=== PATIENT | female | born 1940 | race Caucasian/White ===

== ENCOUNTER → 2020-11-24 10:47 | Outpatient (CLI) | payer MEDICARE, SELFPAY | PROVIDERS: Visit Provider Internal Medicine Gastroenterology | DX: Z01.812 Encounter for preprocedural laboratory examination (principal); Z20.822 Contact with and (suspected) exposure to COVID-19; Z13.810 Encounter for screening for upper gastrointestinal disorder | CPT/HCPCS: U0003 ==

== ENCOUNTER 2020-11-26 09:56 | Day surgery (SDC) | payer MEDICARE, SELFPAY ==
[2020-11-17 14:07] VITALS: BMI 33.3
--- NOTE | 2020-11-26 10:14 | HMH.ANESCL ---
[facility] Anesthesia Checklist - Structural Data Admitted From: Home Planned Operative Procedure/s: EGD Consent for Planned Operative Procedure(s) Verified: Yes - NPO Status Verified Time NPO: 00:00 - Airway Assessment C-Spine Mobility Assessed: Yes TMJ Mobility Assessed: Yes - Neurological Assessment Level of Consciousness: Awake Hx Seizures: No Numbness or tingling in extremities: No - Anesthesia Plan Anesthesia Risk discussed: Yes Anesthesia Plan: Verified ASA Class: III Anesthesia Type: MAC [facility] History I have reviewed the patient's past medical history: Yes Medical History: Reports:: Cancer (COLON), Diabetes Mellitus Type 2 Denies:: Diabetes Mellitus Type 1, Internal Pacemaker, MRSA *Have you ever received a pneumonia vaccine?: Yes *Have you received a flu vaccine this season?: Yes Anesthesia experience/problems:: None Other Surgeries: No: Pacemaker Amputation: No Fractures: No - *Social History Last grade of school completed: High school graduate Smoking Status: Never smoker Alcohol Intake: current Alcohol Intake Frequency:: holidays/special occasions only Substance Use Type: denies use *Occupational Status:: retired Housing: house Household Members: spouse *Travel in the last 8 weeks: None Family Hx:: Stroke, Other
[2020-11-26 10:33] VITALS: BP 171/96; PULSE 92; RESP 18
[2020-11-26 10:52] LABS: POC Glucose,Bedside 115 (70-110)
--- NOTE | 2020-11-26 11:24 | HMH.PROC ---
[facility] Procedure Note Procedure Note:: Upper Endoscopy Procedure Report: Esophagogastroduodenoscopy with cold biopsies and TTS balloon dilation Endoscopost: Tyson Pastrana II, MD Referring Physician: Aisha Cadena PA-C Date of Procedure: November 26, 2020 Equipment: Olympus GIF 190 standard upper endoscope Sedation: MAC sedation Indications: Mrs. Espinoza is an 79-year-old female with dysphagia. The patient does have a long history of GERD and reflux. She did have Jacobo fundoplication (Dr. Elliott Louise) 9 years ago. She did improve initially but has had recurrent symptoms. Now, she reports epigastric abdominal discomfort with dyspepsia. She has had bloating and moderate belching. She reports some early satiety and ongoing reflux. She has had no heartburn. In the morning she will have some globus sensation. She reports regular bowel function. She did have an EGD a couple of years ago at [facility] (Dr. Chris Hernandez) but esophageal dilation was not performed. She was diagnosed with colon cancer (by me) 20 years ago. Procedure: Prior to the procedure, a history and physical exam was performed, and patient's medications and allergies were reviewed. The risks, benefits and alternatives of the sedation and procedure were discussed with the patient. All questions were answered and informed consent was obtained. The patient was brought to the procedure room. Patient identification and proposed procedure were verified by the physician and the nurse. The patient was placed in a left lateral decubitus position and the scope was passed under direct vision. Throughout the procedure, the patient's blood pressure, pulse, and oxygen saturations were monitored continuously. The upper GI endoscopy was accomplished without difficulty. The patient tolerated the procedure well. Findings: The scope was passed directly into the upper esophagus and advanced to the third portion of the duodenum. The post bulbar duodenum and duodenal bulb were normal with normal mucosa and conniventes. The scope was withdrawn through a normal duodenal bulb and pylorus into the stomach. There was linear reactive gastropathy of the antrum and body of the stomach. The remainder of the fundus of the stomach was grossly normal. Upon retroflexion there was a recurrent 3 cm hiatal hernia with evidence of prior Jacobo fundoplication with some slippage. Cold biopsies were taken from the antrum of the stomach. The scope was then withdrawn into the esophagus. There was no evidence of Ya's or reflux esophagitis. There was evidence of moderate to marked esophageal dysmotility. The entire esophagus was dilated to 60 Vietnamese/20 mm with a TTS hydrostatic balloon. There was some resistance at the cricopharyngeus. The remainder of the esophageal mucosa was normal. Impression: 1. Cricopharyngeal spasm status post dilation to 20 mm 2. Nonerosive GERD with moderate to marked esophageal dysmotility and recurrent 3 cm hiatal hernia 3. Moderate linear reactive gastropathy with bile reflux Plan: I will follow-up the biopsies. The patient does have functional dyspepsia and functional GERD with esophageal dyskinesia. We will discuss additional dietary measures and treatment options.
[2020-11-26 11:27] VITALS: BP 149/80; PULSE 89; RESP 16; TEMP 36.2; O2SAT 92
[2020-11-26 11:37] VITALS: BP 103/66; PULSE 81; RESP 16; O2SAT 90
[2020-11-26 11:47] VITALS: BP 126/73; PULSE 78; RESP 16; O2SAT 95
[2020-11-26 11:57] VITALS: BP 145/81; PULSE 78; RESP 16; O2SAT 97
[2020-11-26 12:07] VITALS: BP 142/74; PULSE 74; RESP 16; O2SAT 98
== END 2020-11-26 12:23 | disposition home or self-care (01) ==
LOC: OUTP 09:58
PROVIDERS: PCP Physician Assistant; Visit Provider Internal Medicine Gastroenterology
PROC: 0DJ08ZZ Inspection of Upper Intestinal Tract, Via Natural or Artificial Opening Endoscopic (ICD-10-PCS; CPT 43235; principal; 2020-11-26 11:00)
DX: K21.9 Gastro-esophageal reflux disease without esophagitis (principal); E11.9 Type 2 diabetes mellitus without complications; Z79.84 Long term (current) use of oral hypoglycemic drugs; R13.10 Dysphagia, unspecified; K22.4 Dyskinesia of esophagus; K44.9 Diaphragmatic hernia without obstruction or gangrene; K31.9 Disease of stomach and duodenum, unspecified
CPT/HCPCS: 43239; 43249; 82962; 88305; C1726

== ENCOUNTER 2023-07-31 09:27 | Day surgery (SDC) | payer MEDICARE, SELFPAY ==
[2023-07-31] VITALS (7 sets, daily range): BP systolic 143–185; BP diastolic 65–82; PULSE 64–662; RESP 16–18; TEMP 36.2–36.3; O2SAT 98–100; BMI 32.1
[2023-07-31] MEDS: TETRACAINE 0.5% OPTH SOL 15ML OP ×3 (10:55→11:05)
[2023-07-31] MEDS: PHENYLEPHRINE 2.5% OPHTH SOLN 2ML 0.0500000000000000028 ML OP ×3 (10:55→11:10)
[2023-07-31] MEDS: CYCLOPENTOLATE 2% OPHTH SOLN 2ML BOTTLE OP ×3 (10:55→11:05)
[2023-07-31] MEDS: LACTATED RINGERS 1000ML 1,000 ML 25 ML IV (11:08)
[2023-07-31] MEDS: MIDAZOLAM 2MG/2ML VIAL 1 MG IV (12:30)
[2023-07-31] MEDS: SODIUM CHLORIDE 0.9% 10ML FLUSH SYRINGE 10 ML IV (12:30)
[2023-07-31] MEDS: LIDOCAINE 1% PF 2ML AMPULE 2 ML IJ (12:35)
[2023-07-31] MEDS: TOBRAMYCIN/DEX OPTH SUSP 2.5ML OP (12:36)
[2023-07-31] MEDS: TIMOLOL 0.5% OPTH SOLN 5ML OP (12:36)
[2023-08-01 12:31] LABS: POC Glucose,Bedside 106 (70-110)
== END 2023-07-31 12:55 | disposition home or self-care (01) ==
PROVIDERS: PCP Nurse Practitioner Family; Visit Provider Ophthalmology
PROC: (CPT 66984; principal; 2023-07-31 13:00)
DX: E11.36 Type 2 diabetes mellitus with diabetic cataract (principal); H25.091 Other age-related incipient cataract, right eye; H53.149 Visual discomfort, unspecified
CPT/HCPCS: 66984; 82962; V2632

== ENCOUNTER 2023-08-28 07:58 | Day surgery (SDC) | payer MEDICARE, SELFPAY ==
[2023-08-24 10:13] VITALS: BMI 32.1
[2023-08-28] VITALS (7 sets, daily range): BP systolic 150–180; BP diastolic 62–81; PULSE 58–68; RESP 16–18; TEMP 36.6–36.8; O2SAT 95–98
[2023-08-28] MEDS: TETRACAINE 0.5% OPTH SOL 15ML OP ×3 (09:20→09:30)
[2023-08-28] MEDS: CYCLOPENTOLATE 2% OPHTH SOLN 2ML BOTTLE OP ×3 (09:20→09:30)
[2023-08-28] MEDS: PHENYLEPHRINE 2.5% OPHTH SOLN 2ML 0.0500000000000000028 ML OP ×3 (09:20→09:31)
[2023-08-28] MEDS: LACTATED RINGERS 1000ML 1,000 ML 25 ML IV (09:29)
[2023-08-28] MEDS: MIDAZOLAM 2MG/2ML VIAL 1 MG IV (10:36)
[2023-08-28] MEDS: TOBRAMYCIN/DEX OPTH SUSP 2.5ML OP (10:43)
[2023-08-28] MEDS: LIDOCAINE 1% PF 2ML AMPULE 2 ML IJ (10:43)
[2023-08-28] MEDS: TIMOLOL 0.5% OPTH SOLN 5ML OP (10:44)
[2023-08-29 12:02] LABS: POC Glucose,Bedside 155 (70-110)
== END 2023-08-28 11:03 | disposition home or self-care (01) ==
LOC: OR 07:59
PROVIDERS: PCP Nurse Practitioner Family; Visit Provider Ophthalmology
DX: E11.36 Type 2 diabetes mellitus with diabetic cataract (principal); H25.092 Other age-related incipient cataract, left eye; H53.8 Other visual disturbances; H02.834 Dermatochalasis of left upper eyelid
CPT/HCPCS: 66984; 82962; V2632

== ENCOUNTER 2024-01-01 08:56 | Day surgery (SDC) | payer MEDICARE, SELFPAY ==
--- NOTE | 2023-12-31 14:01 | SUR.PREOP ---
1400:LM to call back. Gave arrival time of 0900.
[2023-12-31 14:28] VITALS: BMI 32.1
[2024-01-01 09:47] VITALS: BP 187/78; PULSE 65; RESP 16; TEMP 36.6; O2SAT 97
[2024-01-01] MEDS: APRACLONIDINE 0.5% OPHTH SOLN 5ML OP (09:53)
[2024-01-01] MEDS: TROPICAMIDE 1% OPTH SOLN 2ML OP (09:53)
[2024-01-01] MEDS: PHENYLEPHRINE 2.5% OPHTH SOLN 2ML OP (09:53)
[2024-01-01] MEDS: TETRACAINE 0.5% OPTH SOL 15ML OP (09:54)
[2024-01-01 09:59] LABS: POC Glucose,Bedside 147 (70-110)
== END 2024-01-01 11:00 | disposition home or self-care (01) ==
LOC: OUTP 08:57
PROVIDERS: PCP Nurse Practitioner Family; Visit Provider Ophthalmology
PROC: (CPT 66821; principal; 2024-01-01 09:00)
DX: H26.492 Other secondary cataract, left eye (principal); E11.8 Type 2 diabetes mellitus with unspecified complications; Z79.84 Long term (current) use of oral hypoglycemic drugs
CPT/HCPCS: 66821; 82962